=== PATIENT | male | born 1940 | race African-American/Black ===

== ENCOUNTER 2021-11-22 00:48 | Inpatient (IN) | payer MEDICARE, BC ==
[~2021-11-22] VITALS: Ht 172.7 cm; Wt 80.7 kg
[2021-11-22 01:35] LABS: BASOPHILS # (AUTO) 0.1 K/uL (0.0-0.2); BASOPHILS % (AUTO) 0.6 % (0.0-2.0); EOSINOPHILS % (AUTO) 3.2 % (0.0-6.0); HEMATOCRIT 37 % (39-51); HEMOGLOBIN 12.3 g/dL (13.5-17.5); LYMPHOCYTES # (AUTO) 0.6 K/uL (0.8-4.8); LYMPHOCYTES % (AUTO) 6.2 % (20.0-44.0); MEAN CORPUSCULAR HGB CONC 33 g/dl (31.0-36.0); MEAN CORPUSCULAR VOLUME 88 fL (80-96); MONOCYTES # (AUTO) 0.9 K/uL (0.1-1.30); MONOCYTES % (AUTO) 8.6 % (2.0-12.0); NEUTROPHILS # (AUTO) 8.4 K/uL (1.8-8.9); NEUTROPHILS % (AUTO) 81.4 % (43.0-81.0); PLATELET COUNT (AUTO) 188 K/uL (150-450); RED BLOOD CELL COUNT(AUTO) 4.24 MIL/uL (4.5-6.0); WHITE BLOOD COUNT (AUTO) 10.3 K/uL (4.3-11.0)
[2021-11-22 01:46] LABS: CALCIUM, SERUM 8.6 mg/dL (8.5-10.1); CARBON DIOXIDE 24 mmol/L (21-32); CHLORIDE 104 mmol/L (98-107); CREATININE 1.7 mg/dL (0.6-1.3); GLUCOSE 122 mg/dL (74-106); SODIUM SERUM 139 mmol/L (136-145); UREA NITROGEN, BLOOD 23 mg/dL (7-18)
[2021-11-22 01:59] LABS: ALANINE AMINOTRANSFERASE 24 U/L (12-78); ALBUMIN 3.7 g/dL (3.4-5.0); ALKALINE PHOSPHATASE 112 U/L (46-116); ASPARTATE AMINOTRANSFERASE 32 U/L (15-37); BILIRUBIN,DIRECT 0.4 mg/dL (0.0-0.2); BILIRUBIN,TOTAL 1.4 mg/dL (0.2-1.0); TOTAL PROTEIN, SERUM 6.7 g/dL (6.4-8.2)
[2021-11-22] MEDS ORDERED: IV NS 0.9% 250 ML IV ONE (02:03)
[2021-11-22] MEDS ORDERED: CT SWABBABLE VALVE TRANS SET 1 EA INFUS.SET MC ONE (02:03)
[2021-11-22] MEDS ORDERED: IOHEXOL-350 100 ML VIAL IV ONE (02:03)
[2021-11-22] MEDS ORDERED: IV NS 0.9% 500 ML BAG IV ONE (02:30)
[2021-11-22] MEDS ORDERED: FUROSEMIDE 40 MG/4 ML VIAL IV ONE (02:30)
[2021-11-22] MEDS ORDERED: FUROSEMIDE 40 MG/4 ML VIAL ONE (02:33)
[2021-11-22] MEDS ORDERED: QUIN10TA16 PO (02:42)
[2021-11-22] MEDS ORDERED: CARV12.52 PO (02:42)
[2021-11-22] MEDS ORDERED: FURO20TA4 PO (02:42)
[2021-11-22] MEDS ORDERED: RIVA10TA PO (02:42)
[2021-11-22] MEDS ORDERED: ENOXAPARIN SODIUM 80 MG/0.8 ML DISP.SYRIN SQ ONE ×2 (04:00→04:29)
[2021-11-22] MEDS ORDERED: QUIN1TAB16 PO (06:23)
[2021-11-22] MEDS ORDERED: POTA-88 PO (06:23)
[2021-11-22] MEDS ORDERED: HOME MED MISCELLANEOUS XX SCH (08:00)
[2021-11-22] MEDS ORDERED: HYDROCHLOROTHIAZIDE 25 MG TABLET PO SCH (09:00)
[2021-11-22] MEDS ORDERED: POTASSIUM CHLORIDE 20 MEQ TAB.PRT.SR PO SCH (09:00)
[2021-11-22] MEDS ORDERED: LISINOPRIL (20MG) 20 MG TABLET PO SCH (09:00)
[2021-11-22] MEDS ORDERED: FUROSEMIDE 40 MG/4 ML VIAL IV SCH ×3 (09:00→17:00)
[2021-11-22] MEDS ORDERED: CARVEDILOL 12.5 MG TABLET PO SCH ×2 (09:00→17:00)
[2021-11-22] MEDS ORDERED: ASPIRIN EC 81 MG TABLET.DR PO SCH (11:00)
[2021-11-22 16:24] VITALS: BP 159/90
[2021-11-22] MEDS ORDERED: RIVAROXABAN 10 MG TABLET PO SCH (17:00)
== END 2021-11-22 20:45 | disposition short-term general hospital (02) | DRG 280 ==
LOC: ER 00:53 → TELE 07:26
PROVIDERS: ADMIT Nurse Practitioner Acute Care; ATTEND Nurse Practitioner Acute Care
DX: I11.0 Hypertensive heart disease with heart failure (principal); N17.0 Acute kidney failure with tubular necrosis; I21.A1 Myocardial infarction type 2; I50.33 Acute on chronic diastolic (congestive) heart failure; I48.20 Chronic atrial fibrillation, unspecified; J90 Pleural effusion, not elsewhere classified; J98.11 Atelectasis; Z20.822 Contact with and (suspected) exposure to COVID-19; Z88.0 Allergy status to penicillin; Z88.2 Allergy status to sulfonamides; Z88.8 Allergy status to other drugs, medicaments and biological substances; Z79.01 Long term (current) use of anticoagulants; Z79.899 Other long term (current) drug therapy; I25.10 Atherosclerotic heart disease of native coronary artery without angina pectoris; Z95.5 Presence of coronary angioplasty implant and graft; E78.5 Hyperlipidemia, unspecified; N28.1 Cyst of kidney, acquired; Z90.79 Acquired absence of other genital organ(s)
CPT/HCPCS: 36415; 71045-TC; 80048-TC; 80076-TC; 83880; 84484-TC; 85025-TC; 85730-TC; 87081-TC; 93307-TC; C9803; G0378; J1650; J1940; J7030; J7040; J7050; Q9967